=== PATIENT | male | born 1980 | race Caucasian/White ===

== ENCOUNTER 2024-07-21 13:54 | Outpatient (CLI) | payer OTHER, SELFPAY ==
[~2024-07-21 13:54] MED LIST: Iopamidol 300 61% 100 ML VIAL FS ONE
== END 2024-07-21 13:55 | disposition home or self-care (01) ==
LOC: CSHCT 13:54
PROVIDERS: ATTEND Specialist
DX: R91.8 Other nonspecific abnormal finding of lung field (principal); Z85.038 Personal history of other malignant neoplasm of large intestine
CPT/HCPCS: 71260